=== PATIENT | female | born 1970 | race Caucasian/White ===

== ENCOUNTER 2018-10-08 11:22 | Day surgery (SDC) | payer BC ==
[~2018-10-08 11:22] MED LIST: Buffered Lidocaine 1% SYRIN* 1 ML/SYRINGE INTRADERM ONE; Famotidine IV* 10 MG/ML 2 ML (20 mg) IV ONE; Lactated Ringers 1000 ML Bag* 1,000 ML IV SCH
[2018-10-08] MEDS ORDERED: Buffered Lidocaine 1% SYRIN* 1 ML/SYRINGE INTRADERM ONE (11:47)
[2018-10-08] MEDS ORDERED: Famotidine IV* 10 MG/ML 2 ML (20 mg) ONE (11:47)
[2018-10-08] MEDS ORDERED: Lidocaine 2% PF * 5 ML VIAL ONE (12:41)
[2018-10-08] MEDS ORDERED: Ondansetron INJ* 2 MG/ML VIAL ONE (12:41)
[2018-10-08] MEDS ORDERED: fentaNYL* 50 MCG/ML 2 ML VIAL (100 MCG VIAL) ONE (12:41)
[2018-10-08] MEDS ORDERED: Lidocaine 4% TOPICAL* 50 ML TOP.SOLN ONE ×2 (12:41→12:44)
[2018-10-08] MEDS ORDERED: Midazolam* 1 MG/ML 10 ML VIAL (10 MG) ONE (12:41)
[2018-10-08] MEDS ORDERED: Propofol* 10 MG/ML 20 ML BTL ONE (12:41)
[2018-10-08] MEDS ORDERED: Lidocaine 2% VISCOUS* 15 ML UDC ONE (12:44)
[2018-10-08 14:17] VITALS: BP 128/68
--- NOTE | 2018-10-08 21:19 | PRO ---
CC: Dr. Brittani Ace; Dr. Lozano * DATE OF PROCEDURE: 10/08/18 - [facility] PROCEDURE: EGD with biopsy. REFERRING PROVIDERS: Dr. Brittani Ace and Dr. Lozano. INDICATION: Pre-bariatric screening. Patient also noted to have mild iron- deficiency anemia on recent labs. MEDICATIONS: Given by Anesthesia. DESCRIPTION OF PROCEDURE: Full disclosure of the risks was reviewed with the patient as detailed on the consent form. The patient was placed in the left lateral decubitus position and monitored with continuous pulse oximetry, capnography, interval blood pressure monitoring, and direct observation. A bite - block was placed between the patient's teeth. An adult gastroscope was then advanced down the esophagus into the stomach and into the duodenum. Findings and interventions are described below. FINDINGS: Esophagus was a normal tubular structure. There was a very mildly irregular Z-line occurring at 35 cm. Biopsy obtained to evaluate for reflux changes. The scope was then advanced into the stomach. Stomach was examined in the forward and retroflexed views. Gastric mucosa was normal in appearance. Biopsy obtained from the antrum and sent for CLOtest. Scope was then advanced into the distal duodenum. Duodenum was normal in appearance. Biopsies were obtained from the bulb and postbulbar duodenum to rule out celiac disease given the iron-deficiency anemia. Scope was then withdrawn from the patient. The patient tolerated the procedure well and recovered in the GI recovery area. IMPRESSION: 1. Complete upper endoscopy to distal duodenum. 2. Very mildly irregular Z-line, biopsied. 3. Otherwise unremarkable. Biopsies taken as above to rule out Helicobacter pylori and celiac disease. FOLLOWUP: Await pathology. Thank you very much for this referral. [id number]/[facility] #: [id number] [facility] [place] [facility]
== END 2018-10-08 14:44 | disposition home or self-care (01) ==
LOC: OR 11:22
PROVIDERS: ATTEND Internal Medicine Gastroenterology
DX: Z01.818 Encounter for other preprocedural examination (principal); E66.01 Morbid (severe) obesity due to excess calories; Z68.43 Body mass index [BMI] 50.0-59.9, adult; D50.9 Iron deficiency anemia, unspecified; R73.03 Prediabetes; I10 Essential (primary) hypertension; M19.90 Unspecified osteoarthritis, unspecified site
CPT/HCPCS: 81025; 87077; 88305; J2250; J2405; J2704; J3010

== ENCOUNTER 2019-03-29 09:00 | Inpatient (IN) | payer BC ==
[2019-04-18] MEDS ORDERED: Buffered Lidocaine 1% SYRIN* 1 ML/SYRINGE INTRADERM ONE (12:52)
[2019-04-19] MEDS ORDERED: Famotidine IV* 10 MG/ML 2 ML (20 mg) IV ONE (06:00)
[2019-04-19] MEDS ORDERED: Dexamethasone IV* 4 MG/ML 1 ML (4 MG) IV SLOW PU ONE (06:00)
[2019-04-19] MEDS ORDERED: Scopolamine 1.5 mg* PATCH TRANSDERM ONE (06:00)
[2019-04-19] MEDS ORDERED: Heparin VIAL(*) 5000 UNITS/ML VIAL (FIVE THOUSAND) ONE (06:06)
[2019-04-19] MEDS ORDERED: Famotidine IV* 10 MG/ML 2 ML (20 mg) ONE (06:07)
[2019-04-19] MEDS ORDERED: ceFAZolin 1 GM ADVAN(*) 1 GM ADDV.VIAL IVPB ONE (06:07)
[2019-04-19] MEDS ORDERED: ceFAZolin 2 GM in NS PREMIX(*) 2 GM/100 ML BAG IVPB ONE (06:07)
[2019-04-19] MEDS ORDERED: Dexamethasone IV* 4 MG/ML 1 ML (4 MG) ONE (06:07)
[2019-04-19] MEDS ORDERED: Scopolamine 1.5 mg* PATCH ONE (06:07)
[2019-04-19] MEDS: Lactated Ringers 1000 ML Bag* 1,000 ML IV SCH ×4 (06:32→20:55)
[2019-04-19] MEDS ORDERED: Rocuronium* 10 MG/ML VIAL ONE (07:06)
[2019-04-19] MEDS ORDERED: Midazolam* 1 MG/ML 5 ML VIAL (5 MG) ONE (07:06)
[2019-04-19] MEDS ORDERED: Propofol* 10 MG/ML 20 ML BTL ONE (07:06)
[2019-04-19] MEDS ORDERED: Lidocaine 2% PF * 5 ML VIAL ONE (07:06)
[2019-04-19] MEDS ORDERED: fentaNYL* 50 MCG/ML 2 ML VIAL (100 MCG VIAL) ONE ×4 (07:06→11:40)
[2019-04-19] MEDS ORDERED: Methylene Blue 0.5 %* 50 MG/10 ML AMP IV ONE (07:14)
[2019-04-19] MEDS ORDERED: Bupivacaine 0.25% W/EPI* 10 ML SDV ONE (07:14)
[2019-04-19] MEDS ORDERED: Acetaminophen IV 1GM/100ML * 1,000 MG/100 ML VIAL IVPB ONE (07:24)
[2019-04-19] MEDS ORDERED: fentaNYL* 50 MCG/ML 2 ML VIAL (100 MCG VIAL) IV PRN (07:24)
[2019-04-19] MEDS ORDERED: Ketorolac INJ* 30 MG/ML 1 ML VIAL IV PRN (07:24)
[2019-04-19] MEDS ORDERED: PROCHLORPERAZINE INJ 5 MG/ML 2 ML VIAL IV PRN (07:24)
[2019-04-19] MEDS ORDERED: Naloxone* 0.4 MG/ML 1 ML VIAL IV PRN (07:24)
[2019-04-19] MEDS ORDERED: EPHEDrine (Pressors)* 50 MG/ML VIAL ONE (08:51)
[2019-04-19] MEDS ORDERED: Labetalol IV* 5 MG/ML 20 ML VIAL ONE (09:27)
[2019-04-19] MEDS ORDERED: Ondansetron INJ* 2 MG/ML VIAL ONE (09:49)
[2019-04-19] MEDS ORDERED: Neostigmine Methylsulfate* 3 MG/3 ML SYRINGE ONE (09:50)
[2019-04-19] MEDS ORDERED: Glycopyrrolate IV* 0.2 MG/ML 1 ML VIAL ONE (09:50)
--- NOTE | 2019-04-19 10:54 | OP ---
Operative Report - Blank - Operative Report Date of Operation: 04/19/19 Note: Brief Operative Note Preop Dx: Morbid obesity; cholelithiasis Postop Dx: same Procedure: Laparoscopic cholecystectomy and Becki en Y gastric bypass Anesthesia: GET Surgeon: Blake Medical Record Coder: TY Campbell; KP Batista Fluids: 1700 ml RL EBL: < 100 ml Specimen: gallbladder Drains: none Findings: as above Complications: none
[2019-04-19] MEDS ORDERED: Acetaminophen ADULT LIQ* 650 MG/20.3 ML UDC PO PRN (10:55)
[2019-04-19] MEDS ORDERED: Ondansetron INJ* 2 MG/ML VIAL IV PRN (10:55)
[2019-04-19] MEDS ORDERED: HYDROmorphone INJ1* 1 MG/ML SYRINGE IV SLOW PU PRN (11:01)
[2019-04-19] MEDS ORDERED: Acetaminophen IV 1GM/100ML * 100 ML ONE (11:20)
[2019-04-19] MEDS ORDERED: PROCHLORPERAZINE INJ 5 MG/ML 2 ML VIAL ONE (11:20)
[2019-04-19] MEDS ORDERED: Insulin LISPRO* 1 UNITS UNIT SUBCUT ONE ×2 (11:32→11:39)
[2019-04-19] MEDS ORDERED: Dextrose 50% Syringe 50 ML* 25 GM/50 ML SYRINGE IV PUSH PRN (11:39)
[2019-04-19] MEDS ORDERED: Ketorolac INJ* 30 MG/ML 1 ML VIAL ONE (12:11)
[2019-04-19] MEDS: Heparin VIAL(*) 5000 UNITS/ML VIAL (FIVE THOUSAND) SUBCUT SCH ×2 (13:48→20:59)
[2019-04-19] MEDS: HYDROmorphone INJ1* 1 MG/ML SYRINGE IV SLOW PU PRN ×2 (17:46→22:57)
[2019-04-19] MEDS: Famotidine IV* 10 MG/ML 2 ML (20 mg) IV SLOW PU SCH (20:56)
[2019-04-19] MEDS: Ketorolac INJ* 30 MG/ML 1 ML VIAL IV PRN (20:58)
--- NOTE | 2019-04-19 20:58 | OP ---
CC: [facility]; Brittani Ace MD * DATE OF OPERATION: 04/19/19 - ROOM #351 DATE OF : 68 SURGEON: Marshall Lozano MD. CARPENTER [employer] TANK ERECTING: TY Andrea. ANESTHESIOLOGIST: Dr. Nicole. ANESTHESIA: General endotracheal. PRE-OP DIAGNOSES: Clinically severe obesity and gallstones. POST-OP DIAGNOSES: Clinically severe obesity and gallstones. OPERATIVE PROCEDURE: Laparoscopic Becki-en-Y gastric bypass and laparoscopic cholecystectomy. ESTIMATED BLOOD LOSS: Less than 100 mL. IV FLUIDS: 1.7 L crystalloid. SPECIMENS: Gallbladder. DRAINS: None. COMPLICATIONS: None. COUNTS: The instrument, needle and sponge counts were correct. DESCRIPTION OF PROCEDURE: The patient was brought to the operating room and placed on the table supine. Sequential compression devices were placed on both lower extremities. General anesthesia was administered. She was positioned and padded appropriately. She was prepped and draped in the usual sterile fashion and a time-out was performed. Local anesthetic was infiltrated into the skin and soft tissue prior to making each incision. Entry into the abdomen was through a left upper quadrant incision accommodating a 12 mm optical trocar. After accessing the peritoneal cavity, carbon dioxide was insufflated to a pressure of 15.5 mmHg. Under direct visualization, a 12 mm bladeless trocars were placed in the supraumbilical midline, 5 mm trocars were placed in the subxiphoid position and in the right upper quadrant laterally. The patient had a fatty infiltration of the liver. The gallbladder appeared to have chronic inflammatory changes. Fundus of the gallbladder was grasped and retracted cephalad. The LigaSure was used to dissect out the cystic duct and cystic artery and to incise the peritoneum investing the gallbladder on the medial and lateral aspects. Sharp and blunt dissection performed until the critical view was obtained. The cystic artery was divided with LigaSure. A cystic duct was doubly clipped and divided sharply. The gallbladder was freed from attachments to the liver bed using the LigaSure staying in an avascular plane. Once the gallbladder was freed, it was placed in an endoscopic retrieval bag and positioned above the liver to be retrieved at the end of the case. Next, the 5 mm subxiphoid port was removed and replaced with a Jose Antonio liver retractor and that was used to elevate the left lobe of the liver. There was noted to be a small laceration of the liver, which was a traction injury created during the cholecystectomy. This was hemostatic. The injury was to the right lobe of the liver near the falciform. The 5 mm right upper quadrant trocar was replaced with a 12 mm trocar and the 5 mm trocar was placed more medially in the right upper quadrant. Gastric anatomy appeared normal and the stomach was mobilized away from the left adrian of the diaphragm bluntly. Perigastric dissection was then undertaken on the lesser curvature to enter the lesser sac. With several fires of the Endo LEANN stapler with a carbajal cartridge, the gastric pouch was created approximating a 15 to 30 mL volume pouch. The staple lines were noted to be intact and hemostatic. There was adhesions of omentum in the pelvis in what appear to be a small hernia, which was filled with omentum. The omentum was divided leaving a portion within the hernia sac. The remaining omentum was then able to be elevated cephalad and the omentum was split down in the midline with a LigaSure. Transverse colon was then elevated and the ligament of Treitz were identified and the jejunum was measured out approximately 50 cm and this loop was sutured to the left lateral staple line of the gastric pouch with interrupted 2- 0 silk sutures. Next, a gastrojejunal anastomosis was created utilizing an Endo LEANN stapler with a 30 mm carbajal cartridge and the common enterotomy was run closed over a 34-English gastric tube. Closure was performed with 3-0 PDS running. The omega loop of the jejunum was divided to the left side of the gastric pouch with the EndoGIA stapler with a carbajal cartridge and then the gastrojejunal anastomosis was tested with methylene blue dye solution instilled through the orogastric tube. No leak was identified. The orogastric tube was removed. The Becki limb was measured out for 150 cm length given the patient's body mass index of 50. The anastomosis was created in a functional end-to-side fashion using the Endo LEANN stapler with a 60 mm carbajal cartridge and the common enterotomy was run closed again with 3-0 PDS running in to and fro and tieing it to itself. Lastly, the mesenteric defect of the jejunojejunostomy was closed with interrupted 3-0 silk using [id number] sutures and a suction suture was also placed at the proximal aspect of that anastomosis. There appeared to be excellent hemostasis and orientation of the bowel was confirmed. The liver tractor and the gallbladder were removed. The gallbladder was noted to be filled with multiple small black stones. All remaining ports were removed and the carbon dioxide was released from the abdomen. The skin incisions were closed with 4-0 Monocryl in a subcuticular fashion and Steri-Strips were applied. The patient tolerated the procedure well, was extubated and transferred to recovery room in stable condition. [id number]/[facility] #: [id number] JUAN
[2019-04-20] MEDS: Lactated Ringers 1000 ML Bag* 1,000 ML IV SCH (03:51)
[2019-04-20] MEDS: Ketorolac INJ* 30 MG/ML 1 ML VIAL IV PRN (04:03)
[2019-04-20] MEDS: Heparin VIAL(*) 5000 UNITS/ML VIAL (FIVE THOUSAND) SUBCUT SCH ×3 (05:51→22:18)
[2019-04-20] MEDS: HYDROmorphone INJ1* 1 MG/ML SYRINGE IV SLOW PU PRN ×3 (05:52→14:38)
[2019-04-20] MEDS: Famotidine IV* 10 MG/ML 2 ML (20 mg) IV SLOW PU SCH ×2 (09:48→22:18)
--- NOTE | 2019-04-20 10:38 | PN ---
Progress Note - Progress Note Date of Service: 04/20/19 SOAP: Subjective: Reports incisional pain. Nausea controlled. Has been walking. Objective: Sitting up in bed; family at bedside Gen: NAD Chest: CTA B; Reg s1s2 Abd: incision c/d/i; no erythema; soft; ND; NT Assessment: POD#1 s/p LRYGB/LAP OSCAR. Doing well. Plan: Adv diet. PO meds. Amb. Home likely tomorrow.
[2019-04-20] MEDS: D5W 1/2 NS KCl 20 Meq 1000 ML* 1,000 ML IV SCH ×2 (10:43→18:38)
[2019-04-20] MEDS: Levothyroxine TAB* 150 MCG TAB PO SCH (10:54)
[2019-04-20] MEDS: Metoprolol Succinate XL TAB* 25 MG PO SCH (10:55)
--- NOTE | 2019-04-20 14:02 | PN ---
Progress Note - Progress Note Date of Service: 04/20/19 SOAP: Subjective: The patient reports moderate discomfort at the incision sites and in her lower back, especially when moving to sit up in bed. She rates the pain at a 6/10 currently but states that when she gets her pain medication it goes down to a 2/10. She denies nausea, vomiting, dizziness, or trouble breathing. She is ambulating well and reports no increased pain with ambulation. She is voiding normally but has not yet stooled. She is tolerating clear liquids well. Objective: Vital Signs - 8 hr 04/20/19 04/20/19 04/20/19 07:45 09:45 09:49 Temperature 98.3 F Pulse Rate 74 Respiratory 16 16 16 Rate Blood Pressure 105/65 (mmHg) O2 Sat by Pulse 99 Oximetry 04/20/19 04/20/19 04/20/19 10:07 11:26 11:56 Temperature 98.5 F Pulse Rate 66 Respiratory 16 16 16 Rate Blood Pressure 117/54 (mmHg) O2 Sat by Pulse 96 Oximetry Intake and Output Last 24 Hours 04/18/19 04/19/19 04/20/19 04/21/19 06:59 06:59 06:59 06:59 Intake Total 3685 45 Output Total 650 200 Balance 3035 -155 Weight 277 lb Intake: IV Fluids 3685 LR 3685 Oral 0 45 Output: Urine 550 200 Estimated Blood Loss 100 Other: Estimated Void Medium # Voids 1 Physical Exam: General: A&O x3, sitting up in a chair comfortably. Not in acute distress or pain. Cardiovascular: RRR, no murmurs, rubs or gallops Lungs: clear to auscultation bilaterally Skin: incisions covered by dressing; appears dry and clean Assessment: 1 day s/p nirali en y gastric bypass and lap cholecystecomy Plan: Continue bariatric clear liquid diet. Continue frequent ambulation and incentive spirometry. Continue heparin for DVT/PE prophylaxis. Possible discharge home tomorrow.
[2019-04-20] MEDS: HYDROcodone/ACET. 7.5/325 LIQ* 15 ML UDC PO PRN ×2 (16:05→22:16)
[2019-04-21] MEDS: D5W 1/2 NS KCl 20 Meq 1000 ML* 1,000 ML IV SCH ×2 (02:44→10:52)
[2019-04-21] MEDS: HYDROcodone/ACET. 7.5/325 LIQ* 15 ML UDC PO PRN ×2 (04:18→14:09)
[2019-04-21] MEDS: Heparin VIAL(*) 5000 UNITS/ML VIAL (FIVE THOUSAND) SUBCUT SCH ×2 (06:09→14:00)
[2019-04-21] MEDS: Levothyroxine TAB* 150 MCG TAB PO SCH (06:09)
--- NOTE | 2019-04-21 08:49 | PN ---
Progress Note - Progress Note Date of Service: 04/21/19 SOAP: Subjective: The patient reports that she is feeling well this morning. Her pain is well controlled with [place] po and her generalized back pain that she complained of yesterday has subsided. She is ambulating, voiding normally, and passing flatus. She has not yet had a bowel movement. She is tolerating her liquid diet well and states that she is working toward the goal of drinking 4 small medicine cups an hour. She has accomplished this once this morning since waking. She denies nausea, vomiting, dizziness, or SOB. Objective: Vital Signs - 8 hr 04/21/19 04/21/19 04/21/19 03:12 03:20 04:18 Temperature 98.1 F Pulse Rate 68 Respiratory 16 16 Rate Blood Pressure 144/86 (mmHg) O2 Sat by Pulse 96 95 Oximetry 04/21/19 04/21/19 04/21/19 06:22 07:46 08:00 Temperature 97.7 F Pulse Rate 72 Respiratory 16 16 16 Rate Blood Pressure 142/91 (mmHg) O2 Sat by Pulse 95 Oximetry Intake and Output Last 24 Hours 04/19/19 04/20/19 04/21/19 04/22/19 06:59 06:59 06:59 06:59 Intake Total 3685 2125 Output Total 650 800 Balance 3035 1325 Weight 277 lb Intake: IV Fluids 3685 1930 D5W 1/2 NS 20 meq KCL 1930 LR 3685 Oral 0 195 Output: Urine 550 800 Estimated Blood Loss 100 Other: Estimated Void Medium Medium # Bowel Movements 0 # Voids 1 1 Physical Exam: General: A&O x3. Sitting up comfortably in bed, not in acute pain or distress. Cardiovascular: RRR. No murmurs, rubs or gallops. Lungs: clear to auscultation bilaterally. Abdomen: incision sites covered by clean dressings, no evidence of redness or drainage. Extremities: 3 cm, round area of purple non-tender ecchymosis present on right ventral surface of right upper arm. No edema. Assessment: 2 days s/p lap cholecystectomy and nirali-en-y gastric bypass, doing well and meeting appropriate milestones. Plan: Continue bariatric clear liquid diet with the goal of drinking 4 small medicine cups per hour. Pain is well controlled on po meds. Continue DVT prophylaxis with heparin and frequent ambulation for the remainder of her admission. Consider discharge home this afternoon.
[2019-04-21] MEDS: Metoprolol Succinate XL TAB* 25 MG PO SCH (09:18)
[2019-04-21] MEDS: Famotidine IV* 10 MG/ML 2 ML (20 mg) IV SLOW PU SCH (09:18)
[2019-04-21 11:45] VITALS: BP 114/78
--- NOTE | 2019-04-21 15:00 | DS ---
AMENDED REPORT NOW INCLUDES DESIGNATED COSIGNER CC: Dr. Ace; [facility] * DISCHARGE SUMMARY: DATE OF ADMISSION: 04/19/19 DATE OF DISCHARGE: 04/21/19 ATTENDING SURGEON: Dr. Marshall Lozano.* (DICTATED BY TY COHEN) HOSPITAL COURSE: Please refer to admission history and physical and operative note for details. Briefly, the patient was taken to the operating room on 04/19 at which time she underwent laparoscopic cholecystectomy as well as Becki-en- Y gastric bypass with Dr. Lozano. Surgery itself was unremarkable and she has had an uneventful postoperative course. As of the morning of postoperative day 2, she is tolerating diet well and pain is under good control. She was seen earlier this morning by Dr. Lozano. PHYSICAL EXAMINATION: Her most recent vital signs: Temperature 98.8, blood pressure 114/78, pulse 80, respirations 16, room air saturation 96%. Abdomen reveals laparoscopic incision sites with small amounts of dried blood, but no evidence of infection, some Steri-Strips were replaced. Instructions were reviewed regarding wound care and activity. She will resume her usual home medications with the following exceptions: She will hold her chlorthalidone, metformin, and meloxicam as well as ferrous sulfate. She was instructed that she may use Tylenol and ryan-hyp-esmqclg ibuprofen p.r.n. for mild- to-moderate pain. She has a prescription for hydrocodone elixir p.r.n. for stronger pain. She already has an appointment with [facility] for next week. She is discharged to home in good condition. TY COHEN [id number]/[facility] #: [id number] MTDD
[2019-04-22] MEDS ORDERED: Scopolamine PATCH Remove* 1 NOTE MISC PATCH OFF ONE (06:00)
== END 2019-04-21 15:03 | disposition home or self-care (01) | DRG 403 ==
LOC: AA 04-19 05:43 → SSU 04-19 13:16
PROVIDERS: ADMIT Surgery; ATTEND Surgery
PROC: 0FT44ZZ Resection of Gallbladder, Percutaneous Endoscopic Approach (ICD-10-PCS; 2019-04-19)
PROC: 0D164ZA Bypass Stomach to Jejunum, Percutaneous Endoscopic Approach (ICD-10-PCS; principal; 2019-04-19 07:30)
DX: E66.01 Morbid (severe) obesity due to excess calories (principal); K80.10 Calculus of gallbladder with chronic cholecystitis without obstruction; Z68.43 Body mass index [BMI] 50.0-59.9, adult; I10 Essential (primary) hypertension; G47.33 Obstructive sleep apnea (adult) (pediatric); K80.20 Calculus of gallbladder without cholecystitis without obstruction; M17.9 Osteoarthritis of knee, unspecified; R73.01 Impaired fasting glucose; I45.10 Unspecified right bundle-branch block; E03.9 Hypothyroidism, unspecified; I77.819 Aortic ectasia, unspecified site; M54.5 Low back pain; R11.0 Nausea; Z88.8 Allergy status to other drugs, medicaments and biological substances; Z82.49 Family history of ischemic heart disease and other diseases of the circulatory system; Z83.49 Family history of other endocrine, nutritional and metabolic diseases
CPT/HCPCS: 43644; 47562; 81025; 88304; A9270-GY; C1776; J0690; J0780; J1100; J1170; J1644; J1815; J1885; J2250; J2405; J2704; J2710; J3010